=== PATIENT | male | born 1970 | race Caucasian/White ===

== ENCOUNTER 2024-06-18 12:21 | Inpatient (IN) | payer MEDICAID ==
[~2024-06-18] VITALS: Ht 182.9 cm; Wt 174.0 kg
[~2024-06-18 12:21] MED LIST: MECL-302 PO
--- NOTE | 2024-06-18 12:30 | Physician Documentation ---
History of Present Illness ~ Stated Complaint: FALL Time Seen by MD: 12:25 HPI This is a 54-year-old gentleman with a history of liver cirrhosis, history of varices, history of chronic pancreatitis, comes in for evaluation of lightheadedness/syncope with the three episodes of falling earlier today with a head strike. No obvious trigger provocation. No particular palliating factors. Mild shortness a breath reported with the patient. Did not attempt to treat his symptoms. Does report nausea which improved with Zofran provided by EMS. No chest pain. He has been sober for three years. Medication Reconciliation Allergies: Coded Allergies: gabapentin (Verified Allergy, Severe, SEIZURE, 05/20/24) trazodone (Verified Allergy, Severe, 05/20/24) Scheduled Atorvastatin Calcium* (Lipitor*), 1 TAB PO DAILY, (Reported) Cyclobenzaprine HCl (Cyclobenzaprine HCl), 0.5 TAB PO BID, (Reported) Ferrous Sulfate (Ferosul), 325 MG PO Q48H, (Reported) Ferrous Sulfate* (Ferrous Sulfate*), 1 TAB PO DAILY, (Reported) Furosemide (Lasix), 2 TAB PO BID, (Reported) Meclizine HCl (Meclizine HCl), 1 TAB PO Q8H Spironolactone (Spironolactone), 1 TAB PO BID, (Reported) Thiamine HCl (Vitamin B-1), 2 TAB PO DAILY, (Reported) Scheduled PRN Hydrocodone Bit/Acetaminophen (Hydrocodone-Apap 10-325 Tablet), 1 TABLET PO Q4H PRN for moderate or severe pain 4-10, (Reported) Review of Systems ROS 10 point review of systems was performed and unless noted above in HPI is negative for acute process/complaint. Physical Exam Physical Exam GENERAL: Awake, alert, oriented, GCS 15, no apparent distress, non-toxic appearing, answers questions, follows commands appropriately. HEENT: Atraumatic, normocephalic, pupils equal, extraocular muscles intact, sclerae anicteric, mucus membranes dry, oropharynx is clear, no stridor. NECK: supple, full active range of motion, trachea midline, no thyromegaly, no lymphadenopathy, no JVD. CARDIOVASCULAR: regular rate/rhythm, no murmurs/gallops/rubs, Pulses are 2+ in all extremities and symmetric. Capillary refill less than 2 seconds. PULMONARY: Nonlabored, good air movement ,no respiratory distress, speaking in full sentences, clear to auscultation bilaterally, no wheezing, no ronchi, no rales, no accessory muscle use. GASTROINTESTINAL: Soft, non-tender, non-distended, normal active bowel sounds, no organomegaly, no pulsatile masses, no CVA tenderness. NEUROLOGIC: Lucid with normal mental status. Normal facial symmetry. Moves all extremities symmetrically and with purpose. No truncal ataxia. Speech is fluid without evidence of dysarthria or aphasia, no focal deficits appreciated. MUSCULOSKELETAL: There is full range of motion of all extremities. There is no joint pain or joint swelling or joint erythema. There is no muscle pain or tenderness or swelling. EXTREMITIES: warm, well-perfused, no cyanosis, no clubbing, no edema, no acute deformities. Skin: warm, dry, no rashes or lesions, no jaundice, no petechiae orpurpura. No ecchymosis. PSYCHIATRIC: Normal affect, normal insight, normal concentration. Focused exam: [] Progress Results/Orders Results/Orders Orders - ROHAN AGUILAR DO Chest,Single View (06/18/24 12:50) Monitor (06/18/24 12:26) Saline Lock (06/18/24 12:) Oxygen (06/18/24 12:26) Electrocardiogram (06/18/24 12:25) Ct Head (06/18/24 13:05) Ct Cervical Spine (06/18/24 13:06) Cta Chest Pe (06/18/24 15:10) Page Hospitalist (06/18/24 17:29) Fill Out Med Reconciliation (06/18/24 17:29) Completed Orders - ROHAN AGUILAR DO Chest,Single View (06/18/24 12:50) Cbc/Diff (06/18/24 12:26) PBNP (06/18/24 12:26) CMP (06/18/24 12:26) Electrocardiogram (06/18/24 12:25) D-Dimer (06/18/24 12:25) Lipase (06/18/24 12:25) PHOS (06/18/24 12:25) Pt Inr (06/18/24 12:25) PTT (06/18/24 12:25) Urinalysis, Cult If Indicated (06/18/24 12:25) MG (06/18/24 12:25) Normal Saline 1000ml (Sodium Chloride 10 (06/18/24 12:25) Ct Head (06/18/24 13:05) Hs Troponin I W Calculations (06/18/24 12:25) Hs Troponin I W Calculations (06/18/24 14:25) Hs Troponin I W Calculations (06/18/24 15:25) Ct Cervical Spine (06/18/24 13:06) * Orthostatic Vitals* Q12H (06/18/24 12:25) Ketorolac Trometh 15mg/Ml Vial (Toradol (06/18/24 12:55) Cta Chest Pe (06/18/24 15:10) Iohexol 350mg/Ml 100ml (Omnipaque 350mg/ (06/18/24 14:44) Ondansetron Inj. (Zofran 4mg/2ml Vial) (06/18/24 15:15) Drug Screen, Urine (06/18/24 15:56) Hgb A1c (06/18/24 12:40) Ethanol (06/18/24 12:40) Vital Signs 06/18/24 06/18/24 06/18/24 06/18/24 12:27 12:32 12:49 13:14 Pulse 90 84 Resp 17 15 11 15 B/P (MAP) 130/62 136/66 (89) Pulse Ox 97 98 O2 Flow Rate 0 06/18/24 06/18/24 06/18/24 14:34 14:46 18:50 Pulse 93 77 89 78 Resp 15 B/P (MAP) 131/59 125/64 (84) 111/54 (73) 114/98 125/64 Pulse Ox 98 Laboratory Tests Test 06/18/24 12:23 06/18/24 12:40 06/18/24 13:00 06/18/24 15:14 Prothrombin Time 12.5 H INR International Normalized Ratio 1.2 Activated Partial Thromboplast Time 33 H D-Dimer 2.62 H D-Dimer Comment Coagulation Comments White Blood Count 6.8 Red Blood Count 3.75 L Hemoglobin 12.5 L Hematocrit 35.5 L Mean Corpuscular Volume 94.5 Mean Corpuscular Hemoglobin 33.2 H Mean Corpuscular Hemoglobin Concent 35.1 Red Cell Distribution Width 15.3 H Platelet Count 119 L Mean Platelet Volume 6.8 L Neutrophils (%) (Auto) 79.3 H Lymphocytes (%) (Auto) 10.7 L Monocytes (%) (Auto) 7.5 Eosinophils (%) (Auto) 2.4 Basophils (%) (Auto) 0.1 Neutrophils # (Auto) 5.4 Lymphocytes # (Auto) 0.7 L Monocytes # (Auto) 0.5 Eosinophils # (Auto) 0.2 Basophils # (Auto) 0.0 CBC Comment Sodium Level 138 Potassium Level 3.7 Chloride Level 102 Carbon Dioxide Level 27.6 Anion Gap 8 Blood Urea Nitrogen 19 H Creatinine 1.53 H Estimated GFR/1.73 m2 48 BUN/Creatinine Ratio 12.4 Glucose Level 122 H Hemoglobin A1c 5.2 Calcium Level 9.8 Phosphorus Level 2.3 Magnesium Level 1.6 Total Bilirubin 2.7 H Aspartate Amino Transf (AST/SGOT) 39 H Alanine Aminotransferase (ALT/SGPT) 42 Alkaline Phosphatase 205 H Troponin I High Sensitivity 17 17 Pro-B-Type Natriuretic Peptide 42 Total Protein 7.0 Albumin 3.3 L Globulin 3.7 Albumin/Globulin Ratio 0.9 L Lipase 40 Chemistry Comments Ethyl Alcohol Level < 10 Urine Specimen Description Cln catch midstream Urine Color Yellow Urine Clarity Clear Urine pH 6.0 Urine Specific [place] 1.015 Urine Protein Negative Urine Glucose (UA) Negative Urine Ketones Negative Urine Occult Blood Negative Urine Nitrite Negative Urine Bilirubin Negative Urine Urobilinogen 0.2 Urine Leukocyte Esterase Negative Urine Culture Indicated Not ind Volume Urine Centrifuged 10 ml Urine Comment Troponin I High Sens Percent Delta 0 Troponin I Hi Sens Absolute Change 0 Test 06/18/24 15:33 06/18/24 16:49 Troponin I High Sensitivity 20 Troponin I High Sens Percent Delta 17 Troponin I Hi Sens Absolute Change 3 Urine Opiates Screen Positive Urine Methadone Screen Negative Urine Fentanyl Screen Negative Urine Barbiturates Screen Negative Urine Phencyclidine Screen Negative Urine Amphetamines Screen Negative Urine Benzodiazepines Screen Negative Urine Cocaine Screen Negative Urine Cannabinoids Screen Negative Drug Screen Comment Medical Decision Making Findings Facility Status: ED Holds, E process The plan was discussed with the patient, who demonstrates clear understanding of the plan and is in agreement with the plan unless otherwise noted in the chart. All questions have been answered, all concerns were addressed unless otherwise documented. I was available throughout their ED stay for frequent reassessment and questions. Differential Diagnoses (considered and possible or likely): [Orthostatic versus vasovagal, less likely malignant arrhythmia syncope, ground level fall, acute traumatic pain, closed head injury, concussion, subdural, subarachnoid, cervical spine fractures once vision, ACS, pneumonia, occult bacteremia, dehydration, electrolyte derangement under differential diagnosis for the gentleman is lightheadedness and near-syncope/syncope with traumatic injury to his head.] ??Differential Diagnoses (considered and unlikely, not requiring evaluation currently): [No evidence of lateralizing signs to suspect a stroke] MDM Data Please see HPI for the following: Independent Historians and external Records Review. Historian: [Patient] Independent Historians: ?[EMS, record review] Medication Management: [Reviewed medication list] Social History and determinants: [Reviewed] Please see the body of the note for the following: Any independent inter pretations of ECG, imaging studies. All vitals signs/haemodynamics, ordered tests were independently reviewed and interpreted by myself. Nursing triage complaint and vitals reviewed, additional nursing notes were reviewed as available and I agree unless otherwise noted or documented in contradiction in the chart Vital Signs: Independently reviewed Labs: Independently interpreted Imaging: Independently interpreted Old Medical Records: Independently reviewed, see [facility] for relevant summary and information Pulse Oximetry: [94%] interpreted as [normal on room air] by me [Book Canvasser: [Regular Rate, Regular rhythm, no ectopy, NSR] reviewed and interpreted by me] Additionally notably showing: [Hemodynamically stable, unremarkable workup versus except for elevated D-dimer., unremarkable imaging no evidence of traumatic injury, no evidence of PE.] Orthostatics are negative. Tests considered but not ordered include: [Echocardiogram can be done on an inpatient basis] Social Determinants of Health Impact: Patient was evaluated in [facility], or [facility] [place] to healthcare due to below par ratio of patient to medical providers. [] Comorbid Conditions Impacting Present Evaluation and Care/Treatment: [See list] Management Discussions with other Healthcare Providers: [Hospitalist regarding admission] Treatment and Disposition Medication Management (Given or considered): []. See EMR for details Consideration for Hospitalization/Escalation/Deescalation of Care: Admission for observation has been considered, and it is necessary for further workup of his recurrent syncopal events. ?ED Course:?[No clinical deterioration] ?Shared decision making:?[] Code status:?FULL Please see the full Electronic Medical Record for full details of nursing documentation, medications list, other records of complete past medical history and conditions, vital signs, laboratory studies, and any radiologic study interpretations by radiologists. Portions of this note were completed using drag on dictation software and as a result there may exist minor errors in spelling. I have reviewed elements of past family and social history and agree as included in note. Departure Disposition: 09 ADMITTED INPATIENT Impression: Primary Impression: Recurrent syncope Additional Impressions: Shortness of breath Ground-level fall Closed head injury Condition: Stable Referrals: NO PRIMARY CARE PROVIDER (PCP) Signature Scribe Signature: No scribe Attestation: This note accurately reflects clinical decisions, work performed by myself, DO LAUREN Barbour NICHOLAS M DO June 18, 2024 12:30
[2024-06-18] MEDS: normal saline 1000ML IV soln IVB ONE (12:47)
[2024-06-18 12:50] LABS: BASOPHILS % (AUTO) 0.1 % (0-1); EOSINOPHILS # (AUTO) 0.2 X10'3 (0-0.9); EOSINOPHILS % (AUTO) 2.4 % (0-6); HEMATOCRIT 35.5 % (42.0-52.0); HEMOGLOBIN 12.5 g/dl (14.0-17.9); LYMPHOCYTES # (AUTO) 0.7 X10'3 (1.1-4.8); LYMPHOCYTES % (AUTO) 10.7 % (21-51); MEAN CORPUSCULAR HEMOGLOBIN 33.2 PG (27.0-31.0); MEAN CORPUSCULAR HGB CONC 35.1 g/dL (33.0-36.5); MEAN CORPUSCULAR VOLUME 94.5 FL (78-98); MEAN PLATELET VOLUME 6.8 FL (7.4-10.4); MONOCYTES # (AUTO) 0.5 X10'3 (0-0.9); MONOCYTES % (AUTO) 7.5 % (2-12); NEUTROPHILS # (AUTO) 5.4 X10'3 (1.8-7.7); NEUTROPHILS % (AUTO) 79.3 % (42-75); PLATELET COUNT 119 X10'3 (140-440); RED BLOOD COUNT 3.75 X10'6 (4.70-6.10); RED CELL DISTRIBUTION WIDTH 15.3 % (11.5-14.5); WHITE BLOOD COUNT 6.8 X10'3 (4.5-11.0)
--- NOTE | 2024-06-18 13:04 | RADIOLOGY REPORT ---
EXAM: DI CHEST,SINGLE VIEW HISTORY: CP COMPARISON: DI CHEST,SINGLE VIEW on DOS: 05/20/24 TECHNIQUE: Portable upright AP view of the chest was performed. FINDINGS: No pneumothorax, consolidative infiltrates, or pulmonary edema. The heart is not enlarged. IMPRESSION: No acute intrathoracic process.
[2024-06-18 13:05] LABS: APTT 33 SECONDS (22-32); D-DIMER 2.62 MG/L FEU (0-0.50); INR 1.2 INR; PROTHROMBIN TIME 12.5 SECONDS (9.0-12.0)
[2024-06-18 13:09] LABS: ALANINE AMINOTRANSFERASE 42 U/L (12-78); ALBUMIN 3.3 G/DL (3.4-5.0); ALBUMIN/GLOBULIN RATIO 0.9 (1.1-1.5); ALKALINE PHOSPHATASE 205 IU/L (46-116); ANION GAP 8 (8-16); ASPARTATE AMINO TRANSFERASE 39 U/L (10-37); BILIRUBIN,TOTAL 2.7 MG/DL (0.1-1.0); BLOOD UREA NITROGEN 19 MG/DL (7-18); BUN/CREATININE RATIO 12.4 (10.0-20.0); CALCIUM 9.8 MG/DL (8.5-10.1); CHLORIDE 102 MMOL/L (99-107); CREATININE 1.53 MG/DL (0.60-1.10); POTASSIUM 3.7 MMOL/L (3.5-5.1); SODIUM 138 MMOL/L (135-145); TOTAL CARBON DIOXIDE 27.6 MMOL/L (24-32); eCRCL 61 ML/MIN; eGFR 48 ML/MIN
[2024-06-18] MEDS: ketorolac trometh 15mg/ml vial 15 MG/ML ML IV ONE (13:14)
[2024-06-18 13:16] LABS: BILIRUBIN,URINE NEGATIVE (Neg); CLARITY,URINE CLEAR (Clear); COLOR,URINE YELLOW (Yellow); GLUCOSE, URINE NEGATIVE (Neg); KETONES,URINE NEGATIVE (Neg); LEUKOCYTE ESTERASE ,URINE NEGATIVE (Neg); OCCULT BLOOD,URINE NEGATIVE (Neg); PROTEIN,URINE NEGATIVE (Neg); UROBILINOGEN,URINE 0.2 E.U/dL (0.2-1.0)
[2024-06-18 13:16] LABS: LIPASE 40 U/L (16-77); MAGNESIUM 1.6 MG/DL (1.5-2.4); PHOSPHORUS 2.3 MG/DL (2.3-4.5); PRO BRAIN NATRIURETIC PEPTIDE 42 PG/ML (0-125)
[2024-06-18 13:17] LABS: GLUCOSE 122 MG/DL (70-104)
[2024-06-18 13:17] LABS: NITRITES, URINE NEGATIVE (Neg); UA COLLECTION TYPE CLN CATCH MIDSTREAM
--- NOTE | 2024-06-18 13:18 | RADIOLOGY REPORT ---
EXAM: CT CT HEAD HISTORY: Fall with a head strike COMPARISON: None TECHNIQUE: Noncontrast axial CT images of the head were performed. Sagittal and coronal reformatted i mages were obtained. This CT exam was performed using 1 or more of the following dose reduction techn iques: Automated exposure control, adjustment of the mA and/or kv according to patient size, or the u se of iterative reconstruction techniques. Radiation Dose: CTDI volume is 61.93 mGy. Dose-length product is 1068.78 mGy*cm FINDINGS: No intracranial hemorrhage, mass, midline shift, hydrocephalus, or evidence of acute large vessel inf arct. The partially-visualized paranasal sinuses are clear. The bilateral mastoid air cells and middl e ear spaces are clear. No cranial fracture or scalp edema. IMPRESSION: No acute intracranial process.
--- NOTE | 2024-06-18 13:18 | RADIOLOGY REPORT ---
EXAM: CT CT CERVICAL SPINE HISTORY: Fall with a head strike COMPARISON: None CTDIvol 25 mGy, DLP 624 mGy*cm. TECHNIQUE: Multiple axial CT images of the spine were obtained using bone algorithm. Axial and issa l reformatting was done. Bone and soft tissue windows were reviewed. FINDINGS: No evidence of definite acute fracture, spinal dislocation, or significant appearing acute subluxatio n is seen. Multilevel degenerative changes of the spine. IMPRESSION: Limited examination secondary to patient motion artifact. No definite CT evidence of acute fracture or dislocation of the bony cervical spine.
--- NOTE | 2024-06-18 13:35 | ELECTROCARDIOGRAPH REPORT ---
[facility] Test Date: 2024-06-18 Test Time: 12:33:10 Pat Name: DAVIE CHING Department: EMERGENCY ROOM Patient ID: [facility]-[id number] Room: [place] [address] Gender: M Justice Professor: WES : 1970 Requested By: ROHAN AGUILRA Order Number: [id number] Reading MD: Dr. Kenroy Osorio Measurements Intervals [place] Rate: 84 P: 52 [place]: 158 QRS: 68 QRSD: 90 T: 39 QT: 390 QTc: 462 Interpretive Statements Sinus rhythm Electronically Signed On 06-19-2024 15:45:[address] Kenroy Osorio Please click the below link to view image of tracing.
[2024-06-18] MEDS ORDERED: iohexol 350MG/ML 100ml bottle IV ONE ×2 (14:44→23:51)
[2024-06-18] MEDS: ondansetron/PF 4mg/2ml inj IV ONE (15:33)
--- NOTE | 2024-06-18 15:35 | RADIOLOGY REPORT ---
CT CTA CHEST PE W/ IV CONTRAST INDICATION: syncope, sob, elev dimer : 54 old Male syncope, sob, elev dimer EXAM DATE: 06/18/2024 02:59 PM COMPARISON: None RADIATION DOSE: CTDIvol: 24 mGy, DLP: 926 mGy*cm PROCEDURE: Helical CT angiographic images were obtained of the chest with intravenous contrast. Sagi ttal and coronal reconstructions as well as MIPS are provided. Maximum intensity projections performe d (MIPs) were performed for CTA. ADDITIONAL IMAGES / REFORMATS: None All CT scans at this medical facility are performed using dose modulation techniques as appropriate t o a performed exam including the following: Automated exposure control was utilized; adjustment of th e MA and/or KV according to patient size; and use of iterative reconstruction technique. FINDINGS: Bones: Scattered degenerative changes are noted in the visualized osseous structures. Visualized Abdomen: Prominent portosystemic collaterals vs enlarged lymph nodes in the upper abdomen. Chest Wall: Normal. Soft tissues: Normal. Mediastinum: Normal. Heart: Normal. Vessels: No filling defects in the visualized pulmonary arteries including the segmental and subsegme ntal pulmonary arteries. Lymph Nodes: Normal. Pleura: Normal. Airways: Normal. Lung: Normal. Other: None IMPRESSION: No pulmonary embolism in the visualized pulmonary arteries including the segmental and subsegmental p ulmonary arteries.
[2024-06-18 17:45] LABS: URINE AMPHETAMINE SCREEN NEGATIVE (Neg); URINE BARBITUATE SCREEN NEGATIVE (Neg); URINE BENZODIAZEPINES SCREEN NEGATIVE (Neg); URINE CANNABINOID SCREEN NEGATIVE (Neg); URINE COCAINE SCREEN NEGATIVE (Neg); URINE METHADONE SCREEN NEGATIVE (Neg); URINE OPIATE SCREEN POSITIVE (Neg); URINE PHENCYCLIDINE SCREEN NEGATIVE (Neg)
[2024-06-18] MEDS ORDERED: THIA50TA10 PO (18:45)
[2024-06-18] MEDS ORDERED: ATOR-429 PO (18:45)
[2024-06-18] MEDS ORDERED: CYCL-394 PO (18:45)
[2024-06-18] MEDS ORDERED: FURO-149 PO (18:45)
[2024-06-18] MEDS ORDERED: HYDR-3973 PO (18:45)
[2024-06-18] MEDS ORDERED: FERR325T28 PO (18:45)
[2024-06-18] MEDS ORDERED: FERR325T35 PO (18:45)
[2024-06-18] MEDS ORDERED: SPIR100T5 PO (18:45)
[2024-06-18] MEDS ORDERED: magnesium sulf-water 4G/100mL 100 ML IV PRN (20:30)
[2024-06-18] MEDS ORDERED: magnesium sulf-water 2g/50mL 50 ML IV PRN (20:30)
[2024-06-18] MEDS ORDERED: mag hydrox/Alum hydrox/simeth 30ml oral suspension PO PRN (20:30)
[2024-06-18] MEDS ORDERED: ondansetron/PF 4mg/2ml inj IV PRN (20:30)
[2024-06-18] MEDS ORDERED: acetaminophen 325mg tablet PO PRN (20:30)
[2024-06-18] MEDS ORDERED: HYDROmorphone/PF 0.2 MG/ML SYRINGE IV PRN (20:30)
[2024-06-18] MEDS ORDERED: magnesium hydroxide 30ml (MOM) UD suspension PO PRN (20:30)
[2024-06-18] MEDS ORDERED: potassium Cl 40MEQ/1/2NS 520ml 520 ML IV PRN (20:30)
[2024-06-18] MEDS ORDERED: potassium Cl 20 mEq SR tablet PO PRN ×2 (20:30)
[2024-06-18] MEDS: HYDROmorphone inj. 0.5 MG/0.5 ML DISP.SYRIN IV ONE (20:48)
[2024-06-18] MEDS: PERFLUTREN PROTEIN-A MICROSPHR (Optison) 0.22 MG/ML 3ML VIAL IV ONE (20:50)
[2024-06-18 20:53] LABS: HEMOGLOBIN A1C 5.2 % (4.5-6.2)
[2024-06-18 21:15] LABS: ETHANOL < 10 MG/DL (<10)
[2024-06-18] MEDS: nicotine 21mg patch - 24 hr TD SCH (21:29)
[2024-06-18] MEDS: normal saline 1000ml 1,000 ML IV ONE ×2 (21:29)
[2024-06-18 23:05] LABS: BASOPHILS % (AUTO) 0.3 % (0-1); EOSINOPHILS # (AUTO) 0.3 X10'3 (0-0.9); EOSINOPHILS % (AUTO) 4.2 % (0-6); HEMATOCRIT 32.2 % (42.0-52.0); HEMOGLOBIN 11.1 g/dl (14.0-17.9); LYMPHOCYTES % (AUTO) 14.9 % (21-51); MEAN CORPUSCULAR HEMOGLOBIN 33.2 PG (27.0-31.0); MEAN CORPUSCULAR HGB CONC 34.6 g/dL (33.0-36.5); MEAN CORPUSCULAR VOLUME 95.9 FL (78-98); MONOCYTES # (AUTO) 0.6 X10'3 (0-0.9); MONOCYTES % (AUTO) 8.4 % (2-12); NEUTROPHILS # (AUTO) 4.8 X10'3 (1.8-7.7); NEUTROPHILS % (AUTO) 72.2 % (42-75); PLATELET COUNT 96 X10'3 (140-440); RED BLOOD COUNT 3.35 X10'6 (4.70-6.10); RED CELL DISTRIBUTION WIDTH 15.4 % (11.5-14.5); WHITE BLOOD COUNT 6.6 X10'3 (4.5-11.0)
[2024-06-18 23:17] LABS: ALANINE AMINOTRANSFERASE 40 U/L (12-78); ALBUMIN 2.7 G/DL (3.4-5.0); ALBUMIN/GLOBULIN RATIO 0.9 (1.1-1.5); ALKALINE PHOSPHATASE 174 IU/L (46-116); ANION GAP 5 (8-16); ASPARTATE AMINO TRANSFERASE 36 U/L (10-37); BILIRUBIN,TOTAL 1.8 MG/DL (0.1-1.0); BLOOD UREA NITROGEN 20 MG/DL (7-18); BUN/CREATININE RATIO 12.1 (10.0-20.0); CALCIUM 8.5 MG/DL (8.5-10.1); CHLORIDE 105 MMOL/L (99-107); CREATININE 1.65 MG/DL (0.60-1.10); POTASSIUM 3.7 MMOL/L (3.5-5.1); SODIUM 139 MMOL/L (135-145); TOTAL CARBON DIOXIDE 28.8 MMOL/L (24-32); TOTAL PROTEIN 5.8 G/DL (6.4-8.2); eCRCL 56 ML/MIN; eGFR 44 ML/MIN
[2024-06-18 23:18] LABS: GLUCOSE 127 MG/DL (70-104)
[2024-06-18 23:20] VITALS: BP 117/52; PULSE 83; RESP 13; TEMP 98.5; O2SAT 100
[2024-06-19] VITALS (8 sets, daily range): BP systolic 107–133; BP diastolic 41–62; PULSE 74–88; RESP 14–20; TEMP 97–98.2; O2SAT 95–100
[2024-06-19] MEDS ORDERED: meclizine 12.5mg tablet PO PRN
[2024-06-19] MEDS: HYDROmorphone inj. 0.5 MG/0.5 ML DISP.SYRIN IV PRN (00:05)
--- NOTE | 2024-06-19 01:45 | HISTORY AND PHYSICAL-Residence ---
History & Physical Providers to CC Resident Creating Document: PAULINA BILLINGS, RES ~ History of Present Illness Reason for Admit\Complaint: Syncope History of Present Illness The patient is a 54-year-old male with past medical history of cirrhosis, varices, chronic pancreatitis, presented to the ED with complaints of dizziness and syncope. He reported that he was getting something at the gas station and suddenly felt dizzy and fell down. He tried getting up and walking but fell down twice again. The last time he fell, he blacked out for about 10 seconds. No injury to his head, no biting of tongue, no postictal confusion. He visited ED last month for dizziness and was sent home on meclizine. He reported that he was compliant with meclizine but did not see any improvement in his symptoms. He also reported that he vomited about 4 tbsp of blood this morning. He has a history of cirrhosis and varices. He complains of severe abdominal pain and says it is his pancreas. As per the patient, he was admitted 5-6 times over the last three years for pancreatitis. He says that he is not an alcoholic or has hepatitis. He does not have a senior solutions workflow consultant and just follows up with a primary care physician in [place]. He underwent endoscopy and colonoscopy in the past and he is sure that he has varices. History is completely unreliable and he is constantly asking for pain medications. He reported that 1 mg of Dilaudid every 4 hours works for him when he has pancreatitis. The patient also complains of severe headache occipitally and retro orbitally. Allergies: Coded Allergies: gabapentin (Verified Allergy, Severe, SEIZURE, 05/20/24) trazodone (Verified Allergy, Severe, 05/20/24) Home Medications Home Medications Active Meclizine HCl 25 Mg Tablet 1 Tab PO Q8H 30 Days Reported Lipitor* (Atorvastatin Calcium) 80 Mg Tablet 1 Tab PO DAILY 30 Days Cyclobenzaprine HCl 10 Mg Tablet 0.5 Tab PO BID 30 Days Ferrous Sulfate* (Ferrous Sulfate) 325 Mg Tablet 1 Tab PO DAILY Vitamin B-1 (Thiamine HCl) 50 Mg Tablet 2 Tab PO DAILY 30 Days Ferosul (Ferrous Sulfate) 325 Mg (65 Mg Iron) Tablet 325 Mg PO Q48H Spironolactone 100 Mg Tablet 1 Tab PO BID 30 Days Hydrocodone-Apap 10-325 Tablet (Acetaminophen/Hydrocodone Bitart) 10mg/325mg Tablet 1 Tablet PO Q4H PRN Lasix (Furosemide) 40 Mg Tablet 2 Tab PO BID 30 Days Past Medical History Past Medical History Cirrhosis Varices Chronic pancreatitis Past Surgical History Surgical History Comment Appendectomy Laminectomy Left ankle surgery Past Social History Social History Comment The patient is in process of getting into an assisted living facility. Denies smoking, alcohol and other drug abuse. He reported that he has quit smoking one year ago and he uses nicotine patches. He does not drink alcohol currently. Uses THC gummy for pain. Uses a cane and a walker to ambulate. ROS ROS Reviewed in full. Negative except for pertinent positives in HPI. Exam Vitals: Vital Signs Date Time Temp Pulse Resp B/P (MAP) Pulse Ox O2 Delivery O2 Flow Rate FiO2 06/19/24 00:05 14 06/18/24 23:36 76 06/18/24 23:20 98.5 117/52 (73) 100 Room Air 06/18/24 12:49 0 General: Adult male, alert and oriented x4, appears to be in acute distress because of abdominal pain Head: Normocephalic with an atraumatic Eyes: Pupils- 3mm, reacting to light, conjunctiva- anicteric Nose and throat: No polyps, septum- normal, no mucosal ulcers Neck: Supple, no lymphadenopathy, no carotid bruit Respiratory: No use of accessory muscles of respiration, Bilateral normal vesiscular breath sounds heard. No wheeze, rhochi or creps Cardiac: S1-S2 heard, rhythm regular, no gallop/murmur Abdomen: non distended, soft, generalized tenderness, no organomegaly, bowel sounds - heard Extremities: no clubbing, no pedal edema, no deformities, peripheral pulses - 2+ Skin: warm and dry, no rash, no purpura Neuro: Right dorsiflexion, plantar flexion, knee extension absent, sensation absent below-knee Diagnostic Data Last Recorded Lab Results: 06/18/24225306/18/[id number] Diagnostic Data: Laboratory Tests Test 06/18/24 12:23 Prothrombin Time 12.5 SECONDS (9.0-12.0) H INR International Normalized Ratio 1.2 INR Activated Partial Thromboplast Time 33 SECONDS (22-32) H D-Dimer 2.62 MG/L FEU (0-0.50) H D-Dimer Comment Coagulation Comments Counseling Services Smoking & Tobacco Cessation: > 10 Minutes Advance Care Planning Advanced Care plannin - 30 Minutes Additional Plan A 54-year-old male with past medical history of cirrhosis, chronic pancreatitis presented to the ED with complaints of dizziness and syncope. He is being admitted into the hospital for further evaluation and management. Plan: Syncope CT head negative. Follow up with MRI head, MRA head and neck, carotid ultrasound, echocardiogram. Continue telemetry monitoring. Meclizine 25 mg q.8h p.r.n. Left leg weakness Rule out stroke CT head negative. Follow up with MRI head. Abdominal tenderness Lipase within normal limits. Repeat lipase in a.m. ETOH negative. Discussed with CT department for detailed description of abdominal and pelvic organs. Follow up with addendum report of CTA abdomen and pelvis. Consider ultrasound abdomen to look for cholecystitis, ascites, cirrhosis if CT is inconclusive. CTA abdomen and pelvis is negative for mesenteric ischemia. Lipase elevated 2.5 and 2.4. No evidence of infection present. Could be attributed to cirrhosis. Patient has drug-seeking behavior and is constantly asking for Dilaudid. He is on 0.5 mg Dilaudid q.4 hours PRN and continued his home Hosmer 10 q.4h PRN. Consider weaning him off Dilaudid once his pain is controlled. Initially started him on clear liquid diet. Advanced to heart healthy diet. Hepatic cirrhosis with varices Upper GI bleed Hemoglobin stable at 12.5. Came down to 11.1, likely dilutional. Follow up with addendum report of CTA abdomen to look for evidence of cirrhosis. There is elevated bilirubin, thrombocytopenia, low albumin and elevated PT. Monitor H&H. Consider GI consultation if further bleeding occurs. Continue Protonix 40 mg IV twice daily and home spironolactone 100 mg twice daily. Elevated dimer CTA chest ruled out PE. Bilateral calf tenderness absent. LOS versus CKD Creatinine 1.53, trended up to 1.65. GFR 44. Patient received contrast twice for CTA chest and CTA abdomen. He received a total of 3 L of NS and currently receiving NS at 100 mL/hour to prevent contrast induced nephropathy. Started him on N-acetylcysteine 600 mg b.i.d. for contrast induced nephropathy. Code Status: Full code DVT Prophylaxis: SCDs Analgesia/Sedation: Dilaudid Lines/Tubes: PIV GI Prophylaxis: Protonix Nutrition: Heart healthy diet PT: Ordered Disposition: We will admit the patient into medical carranza. Continue syncope workup and follow up with addendum of CTA abdomen and pelvis. Paulina Billings MD Internal Medicine Resident PGY-1 I discussed the case with the resident after evaluating the patient and agree with the assessment and plan and the decision making. Maureen Clarke MD Critical Care Date of Service: June 19, 2024 Billing Provider: MAUREEN CLARKE MD,PAULINA TO, [facility] June 19, 2024 01:45 MAUREEN CLARKE MD June 19, 2024 18:15
[2024-06-19] MEDS: normal saline 1000ml 1,000 ML IV SCH (01:51)
--- NOTE | 2024-06-19 01:56 | RADIOLOGY REPORT ---
Clinical History abdominal pain with elevated lactic acid, suspicion of mesenteric ischemia Comparison CTA CHEST PE on 06/18/2024, 1294 images. Technique: MIPS reconstruction was performed in multiple planes. All CT scans at this medical facility are performed using dose modulation techniques as appropriate t o a performed exam including the following: Automated exposure control was utilized; adjustment of th e mA and/or kV according to patient size; and use of iterative reconstruction technique. All CT studies are reported to the Dose Index Registry of the [employer]. Contrast: OMNI 350 100ML Radiation Dose: CTDI (mGy): 35.48; DLP (mGy-cm): 2129.39 DAVIE CHING, [id number] CT angiogram abdomen and pelvis Clinical history: Mesenteric ischemia Findings: Contrast:OMNI 350 100ML The Superior mesenteric artery is intact with out evidence of obstruction or Thrombus. Impression: Superior mesenteric artery intact. This report was electronically signed by Bennett Hopkins MD on 06/19/2024 1:52:36 AM.
[2024-06-19] MEDS: acetylcysteine 200 MG/ml 4ml vial PO ONE (02:16)
[2024-06-19] MEDS: pantoprazole 40 MG vial IV ONE (02:23)
[2024-06-19 06:06] LABS: BASOPHILS % (AUTO) 0.6 % (0-1); EOSINOPHILS # (AUTO) 0.3 X10'3 (0-0.9); EOSINOPHILS % (AUTO) 4.7 % (0-6); HEMATOCRIT 31.3 % (42.0-52.0); HEMOGLOBIN 11.1 g/dl (14.0-17.9); LYMPHOCYTES # (AUTO) 0.9 X10'3 (1.1-4.8); LYMPHOCYTES % (AUTO) 16.1 % (21-51); MEAN CORPUSCULAR HEMOGLOBIN 33.6 PG (27.0-31.0); MEAN CORPUSCULAR HGB CONC 35.3 g/dL (33.0-36.5); MEAN CORPUSCULAR VOLUME 95.3 FL (78-98); MEAN PLATELET VOLUME 6.9 FL (7.4-10.4); MONOCYTES # (AUTO) 0.5 X10'3 (0-0.9); MONOCYTES % (AUTO) 8.5 % (2-12); NEUTROPHILS % (AUTO) 70.1 % (42-75); PLATELET COUNT 93 X10'3 (140-440); RED BLOOD COUNT 3.29 X10'6 (4.70-6.10); RED CELL DISTRIBUTION WIDTH 15.3 % (11.5-14.5); WHITE BLOOD COUNT 5.6 X10'3 (4.5-11.0)
[2024-06-19 06:16] LABS: ALANINE AMINOTRANSFERASE 40 U/L (12-78); ALBUMIN 2.6 G/DL (3.4-5.0); ALBUMIN/GLOBULIN RATIO 0.8 (1.1-1.5); ALKALINE PHOSPHATASE 174 IU/L (46-116); ANION GAP 4 (8-16); ASPARTATE AMINO TRANSFERASE 40 U/L (10-37); BILIRUBIN,TOTAL 1.6 MG/DL (0.1-1.0); BLOOD UREA NITROGEN 20 MG/DL (7-18); BUN/CREATININE RATIO 13.5 (10.0-20.0); CALCIUM 8.6 MG/DL (8.5-10.1); CHLORIDE 104 MMOL/L (99-107); CHOL/HDL RATIO 1.5 (0.00-4.99); CHOLESTEROL 67 MG/DL (0-200); CREATININE 1.48 MG/DL (0.60-1.10); HDL CHOLESTEROL 45 MG/DL (35-60); LDL CHOLESTEROL 23 MG/DL (50-100); LIPASE 76 U/L (16-77); MAGNESIUM 1.8 MG/DL (1.5-2.4); POTASSIUM 4.4 MMOL/L (3.5-5.1); SODIUM 138 MMOL/L (135-145); TOTAL CARBON DIOXIDE 29.6 MMOL/L (24-32); TOTAL PROTEIN 5.7 G/DL (6.4-8.2); TRIGLYCERIDES 29 MG/DL (20-135); eCRCL 63 ML/MIN; eGFR 50 ML/MIN
[2024-06-19 06:22] LABS: GLUCOSE 106 MG/DL (70-104)
[2024-06-19] MEDS: acetylcysteine 200 MG/ml 4ml vial PO SCH (08:00)
[2024-06-19] MEDS: thiamine 100mg tablet PO SCH (08:00)
[2024-06-19] MEDS: K and/or MAG REPLACEMENT MC SCH (08:00)
[2024-06-19] MEDS: atorvastatin 20mg tablet PO SCH (08:47)
[2024-06-19] MEDS: pantoprazole 40 MG vial IV SCH (08:49)
[2024-06-19] MEDS: spironolactone 50 MG tablet PO SCH (09:11)
--- NOTE | 2024-06-19 12:25 | VASCULAR REPORT ---
Carotid Duplex Date: 06/18/2024 12:00 AM Clinical History: Dizziness, syncope Comparison: None Findings: Duplex Doppler evaluation of the extracranial carotid and vertebral arteries including color Doppler and spectral/pulsed waveform analysis was performed. There is mild bilateral atherosclerotic plaque. RIGHT SIDE: The peak systolic velocities are 106 cm/s in the distal CCA, 74 cm/s in the proximal ICA, 68 cm/s in the mid ICA, and 94 cm/s in the distal ICA. The ICA/CCA ratio is normal. There is antegrade flow in the right vertebral artery. LEFT SIDE: The peak systolic velocities are 113 cm/s in the distal CCA, 100 cm/s in the proximal ICA, 87 cm/s in the mid ICA, and 87 cm/s in the distal ICA. The ICA/CCA ratio is normal. There is antegrade flow in the left vertebral artery. IMPRESSION: 1. No sonographic evidence for hemodynamically significant stenosis by velocity criteria.
[2024-06-19] MEDS: HYDROmorphone 1 mg/ml syringe IV PRN (12:53)
--- NOTE | 2024-06-19 14:28 | PROGRESS NOTE- Residence ---
Progress Note - Resident Providers to CC Resident Creating Document: YOANNA JUÁREZ, PATTI ~ Antibiotic Timeout Antibiotic Ordered?: No Subjective Patient was seen in the room lying comfortably over his bed. He mentioned that he has lightheadedness and dizziness before passed out followed by vertigo, leakage of urine in post icterus stage. He also found out new below-knee numbness and tingling along with left-sided weakness after he got syncope attack. He also reported that he has been having the frontal and retro-orbital headaches recently. He denies any new focal neurologic deficits, visual changes, nausea and projectile vomiting. Patient also endorsed that he is nonalcoholic and did not have any fatty liver infiltration cause causing cirrhosis of liver, provided the information of cirrhosis of liver run in his family especially on the male side (father, uncle) and denies history of COPD/emphysema. He is asking to double up his meals. Objective Vital Signs Date Time Temp Pulse Resp B/P (MAP) Pulse Ox O2 Delivery O2 Flow Rate FiO2 06/19/24 12:53 16 06/19/24 06:00 79 06/19/24 02:00 98.2 125/41 (69) 97 Room Air 06/18/24 12:49 0 Result Diagram: 06/19/24 0526 06/19/24 05 Vitals were stable at the moment with temp 98.2� F, MO 74/minute, RR 20/minute, BP 125/41 mm Hg, pulse oximetry 97% on room air. General: Well alert, well oriented, not confused, not agitated, not in acute distress, well cooperated during the physical. HEENT: Conjunctive are pink, sclerae clear, no icterus, pupil is equal in both sides, reactive to light, no ear discharge, no pharyngeal erythema or an edema, mouth and lips are moist. Neck: Supple, no JVD, no lymphadenopathy and thyromegaly. 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 No focal neurological deficits, no motor and sensory weakness in all other extremities, could move all 4 extremities. Musculoskeletal: No joint swelling, deformities, inflammations, and no scoliosis and back tenderness Skin: No active skin lesions and rashes Coagulation Studies Laboratory Tests Test 06/18/24 12:23 Prothrombin Time 12.5 SECONDS (9.0-12.0) H INR International Normalized Ratio 1.2 INR Activated Partial Thromboplast Time 33 SECONDS (22-32) H D-Dimer 2.62 MG/L FEU (0-0.50) H D-Dimer Comment Coagulation Comments Assessment Assessment A 54-year-old male with a past medical history of cirrhosis of liver, varices, chronic pancreatitis, Vertigo on Meclizine came to the ER for the syncope with vertigo and new left leg weakness and numbness after syncope episode and hematemesis along with generalized abd pain and frontal and retro orbital headaches. Plan Plan # Syncope and vertigo- to Rule out BPPV Vs Cerebellar stroke Vs CPA tumor # Left lower extremity numbness tingling and weakness - Pt's possible diagnoses were discussed with the differential diagnosis approach with attending Dr. Gates during rounds this morning. -Orthostatic vitals test was ordered -on neurologic examination, patient has motor and power weakness on left lower extremities with 3/5, equivocal extensor plantar response on the left foot and right-side deviated nystagmus. -CT head showed no acute intracranial pathology, no significant stenosis in bilateral carotid artery ultrasound and CT cervical spine showed no acute fracture spinal dislocation of significant a PRN acute stabilization of the bony cervical spine but with multilevel degenerative cervical spine disorders. -CTA chest showed no significant pulmonary embolism -planning for MRI brain at the outside facility because of his high BMI, 2D echocardiogram preliminary report showed mild concentric hypertrophy, LVEF 60- 65%, RVSP 40 mm Hg, LA mildly dilated, no pericardial effusion. Did not do any bubbles study on echo. -monitor neurology changes and vertigo -PT for the BPPV and LLE weakness -aspiration, seizure, fall precautions she will be applied. -continue telemetry monitoring -continue meclizine 25 mg q.8 hours p.r.n. for vertigo # generalized abdominal pain # history of cirrhosis of liver with esophageal varices # upper GI bleed -increase the dosage of IV Dilaudid 1 mg q.4 hours for uncontrolled abdominal pain with a 0.5 -fecal occult blood test was ordered -initiated IV ceftriaxone for the SBP prophylaxis with abdominal pain although WBC WNL -continue IV pantoprazole 40 mg b.i.d. -initiated p.o. propranolol 10 mg TDS and titrate up accordingly, continue spironolactone 100 mg daily, we will consider IV Lasix therapy once patient's blood pressure is high enough and his proBNP WNL. # class 5 obesity BMI 52 # history of hypertension # history of constipation -possible LENNIE, no established diagnosis -2D echocardiogram prelim showed that LA was dilated with RVSP 40 mm Hg. -blood pressure is averaging around 120/50 mm Hg. # Elevated D dimer -nonspecifically elevated, no sinus tachycardia and shortness of breaths, chest pain, hemoptysis with low risk well criteria score, could be possibly from dehydration versus high BMI # LOS on CKD stage 3 -his baseline creatinine around 1.4, continue optimal hydration status and daily monitoring -his baseline EGFR is around 45-50 # hyperchromic normocytic anemia/dimorphic anemia # thrombocytopenia -most probably from the cirrhosis of liver and chronic liver disease fill in liver's centesis for thrombopoietin -combination of anemia of chronic disease Vs acute GI blood loss and JAIME with a low intake -ordered vitamin B12 and folic acid. -continue his iron replacement therapy from home medication list, be aware of constipation and changes to malignant liver. CODE STATUS: Full code DVT prophylaxis: SCDs Analgesia/sedation: Dilaudid Lines/tubes: Peripheral IV GI prophylaxis: Pantoprazole Nutrition: Double portion regular diet as per moving consultant recommendation, appreciate it Prognosis: Guarded Disposition: Continue medical management, F/up MRI brain and stroke workup, neurological monitoring, upper GI bleeding monitoring, PT eval and DC plan. Pt's possible diagnoses were discussed with the differential diagnosis approach with attending Dr. Gates during rounds this morning. Resident MD attestation: Patient was seen and examined with attending , Dr. Genoveva JUÁREZ MD Internal Medicine Resident, PGY2 [facility] Date of Service: June 19, 2024 Billing Provider: JULIETTE GATES MD Common Visit Codes: [id number] INP/OBS CARE(HIGH) YOANNA JUÁREZ, RES June 19, 2024 14:28 JULIETTE GATES MD June 19, 2024 20:51
[2024-06-19] MEDS: HYDROcodone/acetaminophen 10/325mg tab PO PRN (16:07)
[2024-06-19] MEDS: lactulose 20gm/30ml cup PO SCH (16:13)
[2024-06-19] MEDS: CefTRIAXone/D5W-Rocephin 1gm 50 ML IV SCH (16:26)
[2024-06-19] MEDS: propranolol 10mg tablet PO SCH (16:32)
[2024-06-19] MEDS: cyanocobalamin 500mcg tablet PO SCH (16:32)
[2024-06-19] MEDS: folic acid 1mg tablet PO SCH (16:32)
--- NOTE | 2024-06-19 17:47 | CARDIOLOGY REPORT ---
APPROVED REPORT EXAM: Comprehensive 2D, Doppler, and color-flow Echocardiogram. 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 176.9 cm/s AoV VTI 33.8 cm AO Peak GR. 12.5 mmHg AO Mean GR. 6 mmHg LVOT VTI 28.28 cm LVOT Peak Lance. 131.9 cm/s JODI(VTI)/BSA 3.59 cm2/m2 JODI (VTI) 3.59 cm2 Mitral Valve MV E Velocity 112.0 cm/s MV Peak Gr. 8 mmHg MV DECEL TIME 196 ms MV A Velocity 71.7 cm/s MV PHT 52 ms E/A Ratio 1.6 MVA (PHT) 4.23 cm2 MV PJae225.4 cm/s TDI Medial E' P. V 14.68 cm/s E/Medial E' 7.6 Tricuspid Valve TR P. Velocity 274 cm/s RAP ESTIMATE 10 mmHg TR Peak Gr. 30 mmHg RVSP 40 mmHg Pulmonary Vein S1 Velocity 57.7 cm/s D2 Velocity 65.9 cm/s PVa [id number] cm/s PVa [id number] msec LEFT VENTRICLE LV is mildly dilated with mild concentric hypertrophy. Overall systolic function is normal. Overall L VEF is 60-65%. RIGHT VENTRICLE RV appears mildly dilated with normal contractility. RVSP is estimated at 40 mmHG. ATRIA Left atrium is mildly dilated. AORTIC VALVE Trileaflet AV appears sclerotic without stenosis. No insufficiency. MITRAL VALVE MV is thickened with no annular calcification or stenosis. Trace mitral regurgitation. TRICUSPID VALVE The tricuspid valve is normal in structure. Trace tricuspid regurgitation. PULMONIC VALVE The pulmonary valve is normal in structure. Trace pulmonic regurgitation. GREAT VESSELS The aortic root is normal in size. The ascending aorta is normal in size. The IVC is normal in size a nd collapses >50% with inspiration. PERICARDIUM There is no pericardial effusion. Other Information Study Quality: Adequate Conclusion Overall LVEF is 60-65%. RV appears mildly dilated with normal contractility. RVSP is estimated at 40 mmHG. Trileaflet AV appears sclerotic without stenosis. No insufficiency. Trace mitral regurgitation. Trace tricuspid regurgitation. Trace pulmonic regurgitation. There is no pericardial effusion.
[2024-06-20] VITALS (7 sets, daily range): BP systolic 109–160; BP diastolic 54–66; PULSE 60–73; RESP 13–20; TEMP 97.5–99.5; O2SAT 96–99
[2024-06-20 05:35] LABS: BASOPHILS % (AUTO) 0.7 % (0-1); EOSINOPHILS # (AUTO) 0.3 X10'3 (0-0.9); EOSINOPHILS % (AUTO) 6.3 % (0-6); HEMATOCRIT 34.6 % (42.0-52.0); HEMOGLOBIN 12.1 g/dl (14.0-17.9); LYMPHOCYTES # (AUTO) 0.8 X10'3 (1.1-4.8); LYMPHOCYTES % (AUTO) 16.8 % (21-51); MEAN CORPUSCULAR HEMOGLOBIN 33.4 PG (27.0-31.0); MEAN CORPUSCULAR HGB CONC 34.9 g/dL (33.0-36.5); MEAN CORPUSCULAR VOLUME 95.7 FL (78-98); MEAN PLATELET VOLUME 7.5 FL (7.4-10.4); MONOCYTES # (AUTO) 0.4 X10'3 (0-0.9); MONOCYTES % (AUTO) 7.9 % (2-12); NEUTROPHILS # (AUTO) 3.3 X10'3 (1.8-7.7); NEUTROPHILS % (AUTO) 68.3 % (42-75); PLATELET COUNT 94 X10'3 (140-440); RED BLOOD COUNT 3.62 X10'6 (4.70-6.10); RED CELL DISTRIBUTION WIDTH 15.4 % (11.5-14.5); WHITE BLOOD COUNT 4.9 X10'3 (4.5-11.0)
[2024-06-20 05:59] LABS: ALANINE AMINOTRANSFERASE 38 U/L (12-78); ALBUMIN 2.7 G/DL (3.4-5.0); ALBUMIN/GLOBULIN RATIO 0.8 (1.1-1.5); ALKALINE PHOSPHATASE 177 IU/L (46-116); ANION GAP 4 (8-16); ASPARTATE AMINO TRANSFERASE 40 U/L (10-37); BILIRUBIN,TOTAL 1.4 MG/DL (0.1-1.0); BLOOD UREA NITROGEN 12 MG/DL (7-18); BUN/CREATININE RATIO 10.1 (10.0-20.0); CALCIUM 8.7 MG/DL (8.5-10.1); CHLORIDE 109 MMOL/L (99-107); CREATININE 1.19 MG/DL (0.60-1.10); MAGNESIUM 2.1 MG/DL (1.5-2.4); POTASSIUM 4.9 MMOL/L (3.5-5.1); SODIUM 140 MMOL/L (135-145); TOTAL CARBON DIOXIDE 26.7 MMOL/L (24-32); eCRCL 78 ML/MIN; eGFR 64 ML/MIN
[2024-06-20 06:18] LABS: GLUCOSE 105 MG/DL (70-104)
[2024-06-20] MEDS: lactulose 20gm/30ml cup PO SCH ×2 (13:02→14:00)
--- NOTE | 2024-06-20 17:35 | PROGRESS NOTE- Residence ---
Progress Note - Resident Providers to CC Resident Creating Document: YOANNA JUÁREZ RES ~ Antibiotic Timeout Antibiotic Ordered?: Yes Subjective Patient stated that his abdominal pain is getting better, he still does not have any bowel movement yet. He is conscious, not confused, orientated except for the daytime drowsy but awake and clinically stable. Objective Vital Signs Date Time Temp Pulse Resp B/P (MAP) Pulse Ox O2 Delivery O2 Flow Rate FiO2 06/20/24 17:11 16 Room Air 06/20/24 11:00 99.5 60 160/58 (92) 97 06/18/24 12:49 0 Result Diagram: 06/20/24 0507 06/20/24 0507 Vitals were stable at the moment with temp 99.5� F, MA 60/minute, RR 18/minute, BP 160/58 mm Hg, pulse oximetry 97% on room air. General: Well alert, well oriented, not confused, not agitated, not in acute distress, well cooperated during the physical. HEENT: Conjunctive are pink, sclerae clear, no icterus, pupil is equal in both sides, reactive to light, no ear discharge, no pharyngeal erythema or an edema, mouth and lips are moist. Neck: Supple, no JVD, no lymphadenopathy and thyromegaly. 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 No focal neurological deficits, no motor and sensory weakness in all other extremities, could move all 4 extremities. Musculoskeletal: No joint swelling, deformities, inflammations, and no scoliosis and back tenderness Skin: No active skin lesions and rashes Coagulation Studies Laboratory Tests Test 06/18/24 12:23 Prothrombin Time 12.5 SECONDS (9.0-12.0) H INR International Normalized Ratio 1.2 INR Activated Partial Thromboplast Time 33 SECONDS (22-32) H D-Dimer 2.62 MG/L FEU (0-0.50) H D-Dimer Comment Coagulation Comments Assessment Assessment A 54-year-old male with a past medical history of cirrhosis of liver, varices, chronic pancreatitis, Vertigo on Meclizine came to the ER for the syncope with vertigo and new left leg weakness and numbness after syncope episode and hematemesis along with generalized abd pain and frontal and retro orbital headaches. Plan Plan # Syncope and vertigo- to Rule out BPPV Vs Cerebellar stroke Vs CPA tumor # Left lower extremity numbness tingling and weakness 06/20/2024: R/O CVA with the clear CT head, bilateral Carotid dopplers. - PT Eval for the DC plan -continue meclizine 25 mg q.8 hours as needed, no more complaining vertigo this morning. 06/19/2024:- Pt's possible diagnoses were discussed with the differential diagnosis approach with attending Dr. Gates during rounds this morning. -Orthostatic vitals test was ordered -on neurologic examination, patient has motor and power weakness on left lower extremities with 3/5, equivocal extensor plantar response on the left foot and right-side deviated nystagmus. -CT head showed no acute intracranial pathology, no significant stenosis in bilateral carotid artery ultrasound and CT cervical spine showed no acute fracture spinal dislocation of significant a PRN acute stabilization of the bony cervical spine but with multilevel degenerative cervical spine disorders. -CTA chest showed no significant pulmonary embolism -planning for MRI brain at the outside facility because of his high BMI, 2D echocardiogram preliminary report showed mild concentric hypertrophy, LVEF 60- 65%, RVSP 40 mm Hg, LA mildly dilated, no pericardial effusion. Did not do any bubbles study on echo. -monitor neurology changes and vertigo -PT for the BPPV and LLE weakness -aspiration, seizure, fall precautions she will be applied. -continue telemetry monitoring -continue meclizine 25 mg q.8 hours p.r.n. for vertigo # generalized abdominal pain, Ruled out Mesenteric ischemia # history of cirrhosis of liver with esophageal varices # upper GI bleed # hyper ammonia 06/20/2024: Continue IV Dilaudid 1 mg Q 4 hours as needed, improvement abdominal pain -no bowel movement, increase the dosage of lactulose into 45 mL q.6 hours, pending FOBT -continue IV ceftriaxone day two for SBP prophylaxis -serum ammonia 157, clinically stable, continue lactulose to titrate for LBM up to 3-4 times per day 06/19/2024:-increase the dosage of IV Dilaudid 1 mg q.4 hours for uncontrolled abdominal pain with a 0.5 -fecal occult blood test was ordered -initiated IV ceftriaxone for the SBP prophylaxis with abdominal pain although WBC WNL -continue IV pantoprazole 40 mg b.i.d. -initiated p.o. propranolol 10 mg TDS and titrate up accordingly, continue spironolactone 100 mg daily, we will consider IV Lasix therapy once patient's blood pressure is high enough and his proBNP WNL. -CTA abdomen and pelvis exclude out mesenteric ischemic bowel syndrome # class 5 obesity BMI 52 # history of hypertension # history of constipation 06/20/2024: LVEF 60-65%, RVSP 40 mm Hg, trace MR TR, MA and no pericardial effusion. -control blood pressure, continue medications for portal hypertension including Lasix spironolactone and propranolol. 06/19/2024:-possible LENNIE, no established diagnosis -2D echocardiogram prelim showed that LA was dilated with RVSP 40 mm Hg. -blood pressure is averaging around 120/50 mm Hg. # Elevated D dimer -nonspecifically elevated, no sinus tachycardia and shortness of breaths, chest pain, hemoptysis with low risk Well criteria score to rule out PE, could be possibly from dehydration versus high BMI # LOS on CKD stage 3 06/20/2024: Creatinine 1.19, BUN 12, show some improvement in renal function, daily CMP check 06/19/2024:-his baseline creatinine around 1.4, continue optimal hydration status and daily monitoring -his baseline EGFR is around 45-50 # hyperchromic normocytic anemia/dimorphic anemia # thrombocytopenia 06/20/2024: Hemoglobin stabilized with the 12.1 and no dropping of the hemoglobin with evidence of GI bleed -platelet count is stabilized around 90s x 10*3 06/19/2024:-most probably from the cirrhosis of liver and chronic liver disease fill in liver's centesis for thrombopoietin -combination of anemia of chronic disease Vs acute GI blood loss and JAIME with a low intake -ordered vitamin B12 and folic acid. -continue his iron replacement therapy from home medication list, be aware of constipation and changes to malignant liver. CODE STATUS: Full code DVT prophylaxis: SCDs Analgesia/sedation: Dilaudid Lines/tubes: Peripheral IV GI prophylaxis: Pantoprazole Nutrition: Double portion regular diet as per office machine servicer recommendation, appreciate it Prognosis: Guarded Disposition: Continue medical management, neurological/ sensorial monitoring, upper GI bleeding monitoring, PT eval and DC plan. Pt's possible diagnoses were discussed with the differential diagnosis approach with attending Dr. Gates during rounds this morning. Resident MD attestation: Patient was seen and examined with attending MD, Dr. Genoveva JUÁREZ MD Internal Medicine Resident, PGY2 [facility] Date of Service: June 20, 2024 Billing Provider: JULIETTE GATES MD Common Visit Codes: [id number] INP/OBS CARE(HIGH) YOANNA JUÁREZ RES June 20, 2024 17:35 JULIETTE GATES MD June 20, 2024 21:18
[2024-06-21 01:50] LABS: OCCULT BLOOD STOOL NEGATIVE (Neg)
[2024-06-21 04:08] VITALS: RESP 16
[2024-06-21 05:00] VITALS: BP 125/55; PULSE 64; RESP 19; TEMP 98.5; O2SAT 95
[2024-06-21 05:16] LABS: ALANINE AMINOTRANSFERASE 34 U/L (12-78); ALBUMIN 2.6 G/DL (3.4-5.0); ALBUMIN/GLOBULIN RATIO 0.8 (1.1-1.5); ALKALINE PHOSPHATASE 181 IU/L (46-116); ANION GAP 6 (8-16); ASPARTATE AMINO TRANSFERASE 35 U/L (10-37); BILIRUBIN,TOTAL 1.4 MG/DL (0.1-1.0); BLOOD UREA NITROGEN 12 MG/DL (7-18); BUN/CREATININE RATIO 9.2 (10.0-20.0); CALCIUM 8.5 MG/DL (8.5-10.1); CHLORIDE 109 MMOL/L (99-107); CREATININE 1.31 MG/DL (0.60-1.10); MAGNESIUM 2.1 MG/DL (1.5-2.4); POTASSIUM 4.8 MMOL/L (3.5-5.1); SODIUM 140 MMOL/L (135-145); TOTAL PROTEIN 5.9 G/DL (6.4-8.2); eCRCL 71 ML/MIN; eGFR 57 ML/MIN
[2024-06-21 05:17] LABS: BASOPHILS % (AUTO) 0.8 % (0-1); EOSINOPHILS # (AUTO) 0.4 X10'3 (0-0.9); EOSINOPHILS % (AUTO) 6.9 % (0-6); HEMATOCRIT 33.6 % (42.0-52.0); HEMOGLOBIN 11.7 g/dl (14.0-17.9); LYMPHOCYTES % (AUTO) 19.4 % (21-51); MEAN CORPUSCULAR HEMOGLOBIN 33.3 PG (27.0-31.0); MEAN CORPUSCULAR HGB CONC 34.6 g/dL (33.0-36.5); MEAN CORPUSCULAR VOLUME 96.3 FL (78-98); MEAN PLATELET VOLUME 7.4 FL (7.4-10.4); MONOCYTES # (AUTO) 0.5 X10'3 (0-0.9); MONOCYTES % (AUTO) 9.1 % (2-12); NEUTROPHILS # (AUTO) 3.4 X10'3 (1.8-7.7); NEUTROPHILS % (AUTO) 63.8 % (42-75); PLATELET COUNT 91 X10'3 (140-440); RED CELL DISTRIBUTION WIDTH 15.4 % (11.5-14.5); WHITE BLOOD COUNT 5.3 X10'3 (4.5-11.0)
[2024-06-21 05:18] LABS: GLUCOSE 112 MG/DL (70-104)
[2024-06-21] MEDS ORDERED: FOLI1TAB27 PO (08:56)
[2024-06-21] MEDS ORDERED: LACT-373 PO (08:56)
[2024-06-21] MEDS ORDERED: PANT-47 PO (08:56)
[2024-06-21] MEDS ORDERED: CLOP-32 PO (08:56)
[2024-06-21] MEDS ORDERED: PROP10TA10 PO (08:56)
[2024-06-21] MEDS ORDERED: CYAN500T71 PO (08:56)
[2024-06-21] MEDS ORDERED: FURO-149 PO (08:56)
[2024-06-21 09:00] VITALS: RESP 18; O2SAT 96
[2024-06-21 10:00] VITALS: BP 130/58; PULSE 63; RESP 20; TEMP 97.9; O2SAT 94
[2024-06-21] MEDS: magnesium Cl slow-release 64mg tablet PO PRN (15:31)
[2024-06-21 15:42] VITALS: RESP 14
--- NOTE | 2024-06-21 16:14 | PROGRESS NOTE- Residence ---
Progress Note - Resident Providers to CC Resident Creating Document: AYE MUNGUIA, PATTI ~ Central Line/PICC still needed: No Subjective Patient stated that his abdominal pain is getting better, he still does not have any bowel movement yet. He is conscious, not confused, orientated except for the daytime drowsy but awake and clinically stable. Objective Vital Signs Date Time Temp Pulse Resp B/P (MAP) Pulse Ox O2 Delivery O2 Flow Rate FiO2 06/21/24 13:23 18 06/21/24 10:00 97.9 63 130/58 (82) 94 Room Air 06/21/24 09:00 0.0 Result Diagram: 06/21/24 0436 06/21/24 0436 Coagulation Studies Laboratory Tests Test 06/18/24 12:23 Prothrombin Time 12.5 SECONDS (9.0-12.0) H INR International Normalized Ratio 1.2 INR Activated Partial Thromboplast Time 33 SECONDS (22-32) H D-Dimer 2.62 MG/L FEU (0-0.50) H D-Dimer Comment Coagulation Comments Assessment Assessment A 54-year-old male with a past medical history of cirrhosis of liver, varices, chronic pancreatitis, Vertigo on Meclizine came to the ER for the syncope with vertigo and new left leg weakness and numbness after syncope episode and hematemesis along with generalized abd pain and frontal and retro orbital headaches. Plan Plan # Syncope and vertigo- to Rule out BPPV Vs Cerebellar stroke Vs CPA tumor # Left lower extremity numbness tingling and weakness 06/20/2024: R/O CVA with the clear CT head, bilateral Carotid dopplers. - PT Eval for the DC plan -continue meclizine 25 mg q.8 hours as needed, no more complaining vertigo this morning. 06/19/2024:- Pt's possible diagnoses were discussed with the differential diagnosis approach with attending Dr. Tomas during rounds this morning. -Orthostatic vitals test was ordered -on neurologic examination, patient has motor and power weakness on left lower extremities with 3/5, equivocal extensor plantar response on the left foot and right-side deviated nystagmus. -CT head showed no acute intracranial pathology, no significant stenosis in bilateral carotid artery ultrasound and CT cervical spine showed no acute fracture spinal dislocation of significant a PRN acute stabilization of the bony cervical spine but with multilevel degenerative cervical spine disorders. -CTA chest showed no significant pulmonary embolism -planning for MRI brain at the outside facility because of his high BMI, 2D echocardiogram preliminary report showed mild concentric hypertrophy, LVEF 60- 65%, RVSP 40 mm Hg, LA mildly dilated, no pericardial effusion. Did not do any bubbles study on echo. -monitor neurology changes and vertigo -PT for the BPPV and LLE weakness -aspiration, seizure, fall precautions she will be applied. -continue telemetry monitoring -continue meclizine 25 mg q.8 hours p.r.n. for vertigo # generalized abdominal pain, Ruled out Mesenteric ischemia # history of cirrhosis of liver with esophageal varices # upper GI bleed # hyper ammonia 06/20/2024: Continue IV Dilaudid 1 mg Q 4 hours as needed, improvement abdominal pain -no bowel movement, increase the dosage of lactulose into 45 mL q.6 hours, pending FOBT -continue IV ceftriaxone day two for SBP prophylaxis -serum ammonia 157, clinically stable, continue lactulose to titrate for LBM up to 3-4 times per day 06/19/2024:-increase the dosage of IV Dilaudid 1 mg q.4 hours for uncontrolled abdominal pain with a 0.5 -fecal occult blood test was ordered -initiated IV ceftriaxone for the SBP prophylaxis with abdominal pain although WBC WNL -continue IV pantoprazole 40 mg b.i.d. -initiated p.o. propranolol 10 mg TDS and titrate up accordingly, continue spironolactone 100 mg daily, we will consider IV Lasix therapy once patient's blood pressure is high enough and his proBNP WNL. -CTA abdomen and pelvis exclude out mesenteric ischemic bowel syndrome # class 5 obesity BMI 52 # history of hypertension # history of constipation 06/20/2024: LVEF 60-65%, RVSP 40 mm Hg, trace MR TR, NM and no pericardial effusion. -control blood pressure, continue medications for portal hypertension including Lasix spironolactone and propranolol. 06/19/2024:-possible LENNIE, no established diagnosis -2D echocardiogram prelim showed that LA was dilated with RVSP 40 mm Hg. -blood pressure is averaging around 120/50 mm Hg. # Elevated D dimer -nonspecifically elevated, no sinus tachycardia and shortness of breaths, chest pain, hemoptysis with low risk Well criteria score to rule out PE, could be possibly from dehydration versus high BMI # LOS on CKD stage 3 06/20/2024: Creatinine 1.19, BUN 12, show some improvement in renal function, daily CMP check 06/19/2024:-his baseline creatinine around 1.4, continue optimal hydration status and daily monitoring -his baseline EGFR is around 45-50 # hyperchromic normocytic anemia/dimorphic anemia # thrombocytopenia 06/20/2024: Hemoglobin stabilized with the 12.1 and no dropping of the hemoglobin with evidence of GI bleed -platelet count is stabilized around 90s x 10*3 06/19/2024:-most probably from the cirrhosis of liver and chronic liver disease fill in liver's centesis for thrombopoietin -combination of anemia of chronic disease Vs acute GI blood loss and JAIME with a low intake -ordered vitamin B12 and folic acid. -continue his iron replacement therapy from home medication list, be aware of constipation and changes to malignant liver. CODE STATUS: Full code DVT prophylaxis: SCDs Analgesia/sedation: Dilaudid Lines/tubes: Peripheral IV GI prophylaxis: Pantoprazole Nutrition: Double portion regular diet as per typewriter repairer recommendation, appreciate it Prognosis: Guarded Disposition: Continue medical management, neurological/ sensorial monitoring, upper GI bleeding monitoring, PT eval and DC plan. Pt's possible diagnoses were discussed with the differential diagnosis approach with attending Dr. Tomas during rounds this morning. Resident MD attestation: Patient was seen and examined with attending MD, Dr. Genoveva JUÁREZ MD Internal Medicine Resident, PGY2 [facility] AYE MUNGUIA, RES June 21, 2024 16:14
--- NOTE | 2024-06-21 17:07 | DISCHARGE SUMMARY-Residence ---
Discharge Summary Providers to CC Resident Creating Document: EWELINAJOHNNYDWIGHTPATTI GRIFFITHS ~ Discharge Summary Admission Diagnosis: SYNCOPE Hospital Course DATE OF ADMISSION: 06/19/2024 DATE OF DISCHARGE: 06/21/2024 Discharge Diagnosis\Comment: Syncope secondary to possible stroke- unable to evaluate with the MRI Frontal Headache secondary to the syncope/hyperammonemia Chronic abdominal pain from chronic pancreatitis Acute on chronic decompensated liver cirrhosis Class 5 obesity, history of hypertension, history of constipation LOS and CKD stage 3 Elevated D-dimer, low risk for PE Dimorphic anemia, thrombocytopenia Operations\Procedures: None Consultants: None Complications: None Condition on DC: Stable for transfer New Medications: Clopidogrel Bisulfate (Plavix) 75 Mg Tablet 1 TAB PO DAILY for 21 Days, #21 TAB 0 Refills Pantoprazole Sodium (PROTONIX tablet) 40 Mg Tablet.dr 40 MG PO DAILY, #30 TAB.SR Cyanocobalamin* (Vitamin B-12*) 500 Mcg Tablet 500 MCG PO DAILY, #30 TAB Folic Acid* (Folic Acid*) Y Tab 1 MG PO DAILY, #30 TAB Lactulose (Lactulose) 10 Gram/15 Ml Solution 45 GM PO Q6H for 30 Days, #120 ML Propranolol Hcl* (Inderal*) 10 Mg Tablet 10 MG PO TID for 30 Days, #90 TAB Changed Medications: Furosemide (Lasix) 40 Mg Tablet 1 TAB PO BID for 30 Days, #30 TAB 0 Refills (Changed from: 2 TAB) Continued Medications: Atorvastatin Calcium* (Lipitor*) 80 Mg Tablet 1 TAB PO DAILY for 30 Days, #30 TAB Cyclobenzaprine HCl (Cyclobenzaprine HCl) 10 Mg Tablet 0.5 TAB PO BID for muscle spasms for 30 Days, #30 TAB Ferrous Sulfate* (Ferrous Sulfate*) 325 Mg Tablet 1 TAB PO DAILY, TAB Hydrocodone Bit/Acetaminophen (Hydrocodone-Apap 10-325 Tablet) 10mg/325mg Tablet 1 TABLET PO Q4H PRN for moderate or severe pain 4-10, #30 TAB Meclizine HCl (Meclizine HCl) 25 Mg Tablet 1 TAB PO Q8H for 30 Days, #90 TAB Spironolactone (Spironolactone) 100 Mg Tablet 1 TAB PO BID for 30 Days, #30 TAB 0 Refills Thiamine HCl (Vitamin B-1) 50 Mg Tablet 2 TAB PO DAILY for 30 Days, #60 TAB 0 Refills Discontinued Medications: Ferrous Sulfate (Ferosul) 325 Mg (65 Mg Iron) Tablet 325 MG PO Q48H, TAB Discharge Summary: 54-year-old male patient with a past medical history of cirrhosis of liver, varices, chronic pancreatitis, vertigo on meclizine came to the ER with syncopal episodes and new left-sided lower limb weakness 3 x 5 and numbness. He also had an episode of hematemesis prior to the hospitalization with the associated generalized abdominal pain, frontal and retro-orbital headaches as well. Differential diagnosis that were worked up included BPPV, cerebellar stroke versus CPA tumor for the left lower limb numbness and weakness. Patient was unable to undergo MRI scan but a CT head and bilateral carotid Dopplers were without abnormalities. An echocardiogram was done which ruled out presence of bubbles. Telemetry revealed no newly diagnosed arrhythmia. Patient was managed for possible BPPV with meclizine, orthostatic vitals were negative and he was started on Plavix plus statin as MRI could not be performed but due to the physical findings being on lines with acute stroke. On further questioning, the patient admitted to having liver cirrhosis with esophageal varices and chronic pancreatitis. The chronic pancreatitis was likely causing his chronic abdominal pain. The patient's ammonia level was at 157. Although patient was awake and alert x4 throughout the hospitalization. Lactulose was started with the goal to have 3-4 times of loose bowel movements, Aldactone, Lasix and propranolol were also started. In view of the abdominal pain, a suspicion of possible SBP, the patient was also started on IV Rocephin. Thiamine, folic acid and vitamin B12 were replaced. Patient denied labs and was noncompliant with taking the lactulose either. He was adamant on being discharged. He was awake alert and oriented x4 during the entire conversation about discharge planning. The patient was agreeable to taking all his medications including the lactulose as indicated, to follow up outpatient and be discharged. Case management was made aware for discharge planning. Advised at discharge: Kindly take all the medications as indicated. Make sure you have at least 3-4 bowel movements per day. Follow up with the primary care provider. Abstain from any alcohol or smoking. Be aware of your high-risk of falls. Kindly returned back to the ER if you have recurrence of symptoms. Physical exam at discharge: General: Awake, alert and oriented x4. HEENT: Conjunctive are pink, sclerae clear, no icterus, pupil is equal in both sides, reactive to light, no ear discharge, no pharyngeal erythema or an edema, mouth and lips are moist. Lungs:Equal air entry on both lungs, no additional sounds Heart: S1-S2 regular sinus rhythm and, regular rate, no gallops, no rubs, no murmurs Abdomen: No visible peristalsis, Bowel sounds present on auscultation, soft,Generalized abdominal tenderness especially over the periumbilical area, no guarding, no rigidity Extremities: No obvious deformities, no pitting edema bilaterally, capillary refill intact, able to wiggle toes both sides, peripheral pulsations are intact on both sides, slight flapping tremors bilaterally TOOL PROCUREMENT COORDINATOR: motor and power weakness on left lower extremities with 3/5, equivocal extensor plantar response on the left foot and right-side deviated nystagmus. No focal neurological deficits, no motor and sensory weakness in all other extremities, could move all 4 extremities. Musculoskeletal: No joint swelling, deformities, inflammations, and no scoliosis and back tenderness Skin: No active skin lesions and rashes Labs at discharge: WBC 5.3, RBC 3.5, hemoglobin 11.7, platelets 91 Sodium 140, potassium 4.8, chloride 109, bicarb twenty-five, BUN 12, creatinine 1.3, glucose 112, total bilirubin 1.1, alkaline phosphatase 181, albumin 2.6 Medications at discharge: Lactulose 45 mg q.6 hours, Plavix, vitamin B12, folic acid, Protonix, propranolol t.i.d. 10 mg, Lipitor, cyclobenzaprine, ferrous sulfate, Ivor, meclizine, spironolactone 100 mg b.i.d., thiamine, Lasix 40 mg b.i.d. *Problems/Diagnosis: (1) Cirrhosis of liver (2) Recurrent syncope Status: Acute Total Time Spent on D/C: > 30 Minutes Addendum despite very high ammonia levels pt maintained normal mental status, at most grade 2 hepatic encephalopathy pt felt comfortable being discharged Date of Service: June 21, 2024 Billing Provider: JULIETTE GATES MD Common Visit Codes: 26113-EDK/OBS DISCH DAY >30min Secondary Visit Codes: 41735-FRLBWLHD E&M SERVICE AYE MUNGUIA RES June 21, 2024 17:06 JULIETTE GATES MD June 21, 2024 21:49
[2024-06-22] MEDS ORDERED: LACT-373 PO (08:41)
== END 2024-06-21 16:08 | disposition home or self-care (01) | DRG 45 ==
LOC: ER 12:21 → ED HOLD 20:37 → EDBEDREQ 22:39 → PCU 3S 23:22 → ORTHO 4S 06-20 13:55
PROVIDERS: ADMIT Internal Medicine Pulmonary Disease; ATTEND Internal Medicine
PROC: B32T1ZZ Computerized Tomography (CT Scan) of Left Pulmonary Artery using Low Osmolar Contrast (ICD-10-PCS; principal; 2024-06-18)
PROC: B3201ZZ Computerized Tomography (CT Scan) of Thoracic Aorta using Low Osmolar Contrast (ICD-10-PCS; 2024-06-18)
PROC: B32S1ZZ Computerized Tomography (CT Scan) of Right Pulmonary Artery using Low Osmolar Contrast (ICD-10-PCS; 2024-06-18)
DX: I63.9 Cerebral infarction, unspecified (principal); K65.2 Spontaneous bacterial peritonitis; K76.82 Hepatic encephalopathy; D69.6 Thrombocytopenia, unspecified; N17.9 Acute kidney failure, unspecified; K74.60 Unspecified cirrhosis of liver; S09.8XXA Other specified injuries of head, initial encounter; K92.2 Gastrointestinal hemorrhage, unspecified; D53.1 Other megaloblastic anemias, not elsewhere classified; H81.10 Benign paroxysmal vertigo, unspecified ear; K86.1 Other chronic pancreatitis; E66.89 Other obesity not elsewhere classified; Z68.43 Body mass index [BMI] 50.0-59.9, adult; W18.39XA Other fall on same level, initial encounter; N18.30 Chronic kidney disease, stage 3 unspecified; Z88.8 Allergy status to other drugs, medicaments and biological substances; Z79.899 Other long term (current) drug therapy; Y93.89 Activity, other specified; Y92.89 Other specified places as the place of occurrence of the external cause; Y99.8 Other external cause status; Z90.49 Acquired absence of other specified parts of digestive tract
CPT/HCPCS: 36415; 70450; 71045; 71275; 72125; 74174; 80053; 80061; 80305; 80320; 81003; 82140; 82272; 83036; 83605; 83690; 83735; 83880; 84100; 84145; 84484; 85025; 85379; 85610; 85730; 87081; 93005; 93306; 93880; 96361; 96374; 96375; 97110; 97116; 97162; 99285; G0378; J0696; J1171; J1885; J2405; J2470; J3490; J7030; Q9967